=== PATIENT | male | born 1975 | race Caucasian/White ===

== ENCOUNTER 2024-12-11 10:40 | Emergency (ER) | payer BC, SELFPAY ==
[2024-12-11] VITALS (8 sets, daily range): BP systolic 129–155; BP diastolic 83–107; PULSE 61–81; RESP 16–18; TEMP 36.7–37; O2SAT 96–99; BMI 26.6
--- NOTE | 2024-12-11 11:21 | CT_ITS ---
FINAL REPORT TECHNIQUE: After the administration of intravenous contrast, axial images were obtained through the abdomen and pelvis by computed tomography. This study was performed with technique to keep radiation doses as low as reasonably achievable, (ALARA). Individualized dose reduction techniques using automated exposure control or adjustment of the MA and/or KV according to the patient's size were employed. CLINICAL HISTORY: right sided abd pain FINDINGS: Abdomen: The lung bases are clear. The liver is mildly fatty infiltrated. Gallbladder is present. The spleen is unremarkable. The adrenals are normal. The pancreas is unremarkable. There is prominence of the right renal pelvis with an obstructing 3 mm right UPJ stone seen on image 45 of series 3. The aorta is normal in caliber. There is no free fluid or adenopathy. Pelvis: The appendix is. The urinary bladder is unremarkable. There is no free fluid or adenopathy. IMPRESSION: Obstructing 3 mm right UPJ stone. Reviewed, Interpreted and Dictated by Lexa Norman MD Transcribed by Betty Bedolla Authenticated and [facility]
[2024-12-11 11:22] LABS: Microscopic, Urine URINE MICROSCOPIC (MICROSCOPIC)
--- NOTE | 2024-12-11 11:24 | ED_ITS ---
Discharge Plan Disposition Patient Disposition: Home, Self-Care Condition: Good Prescriptions Prescriptions: New ketorolac 10 mg tablet 10 mg PO Q6H PRN (Reason: pain) 5 Days Qty: 20 0RF tamsulosin [Flomax] 0.4 mg capsule 0.4 mg PO DAILY Qty: 14 0RF Rx Instructions: Take daily until passage of stone ondansetron 4 mg tablet,disintegrating 4 mg PO Q6H PRN (Reason: nausea and vomiting) Qty: 14 0RF Referrals Follow up/Referrals: Kyle Barry MD [Referring] - See instructions Provider,MD Rob [Primary Care Provider] - See instructions Activity Restrictions/Add. Instructions Additional Instructions/Restrictions: Please take all medications as prescribed, please follow-up with your family doctor and urologist in the upcoming days/weeks, return to the emergency department any worsening signs or symptoms. Please strain your urine until passage of kidney stone. Clinical Impressions Clinical Impression: Right nephrolithiasis Instructions Patient Instructions: DI for Kidney Stones Print Language Print Language: Grenadian Discharge ED Provider: Franco Song General Adult HPI <RAJ Cruz - Last Filed: 12/11/24 14:49> General Chief complaint: Abdominal Pain Stated complaint: Poss. appendicitis. Lower abd. pain Time Seen by Provider: 12/11/24 11:08 Mode of Arrival: Ambulatory Source of Information: Patient Description of Symptoms (Recalled from ER Triage Doc. by RN): pt c/o RLQ pain that started . pt states it originally felt like bloating. The pain comes in waves but increased last night when he began having N/V. pt denies CP, SOA, diarrhea or urinary symptoms. Last norm BM this AM. History of Present Illness HPI narrative: 49-year-old male presents to the emergency department with 4-day history of waxing and waning abdominal pain, with an episode of nausea and vomiting last night, patient describes it as bloating , pain is localized to the lower abdominal regions, most notable to the right lower quadrant, patient admits to subjective fever and chills last night, after the episode of vomiting, did have 1 episode of diarrhea last night as well, denies any chest pain shortness of breath, denies any constipation, denies any further episodes of diarrhea, did have p.o. intake this morning with a soda,, no hematochezia hematemesis or hemoptysis, nonbilious vomiting, no other family members or any other household members are sick, or have similar symptoms, denies any recent sick contacts, no urinary type symptomatology, patient has no other real relevant past medical history, takes no other medications at home, occasionally utilizes alcohol, denies any tobacco or other drug use initial triage vitals unremarkable. Onset (ago): day(s) Related Data Previous Rx's ?Medication ?Instructions ?Recorded ketorolac 10 mg tablet 10 mg PO Q6H PRN pain 5 days #20 12/11/24 tabs ondansetron 4 mg disintegrating 4 mg PO Q6H PRN nausea and 12/11/24 tablet vomiting #14 tabs tamsulosin 0.4 mg capsule (Flomax) 0.4 mg PO DAILY #14 caps 12/11/24 Allergies Allergy/AdvReac Type Severity Reaction Status Date / Time No Known Allergies Allergy Verified 12/11/24 11:18 [facility] <RAJ Cruz - Last Filed: 12/11/24 14:49> [facility] Disclaimer: The information contained in this section may have been updated after the patient was seen, as this information can be updated by other users. Social History (Updated 12/11/24 @ 14:49 by RAJ Cruz) Smoking Status: Never smoker alcohol intake: never current occupational status: other Travel in the last 8 weeks?: None Have you lived/traveled outside [place] in past 30 days?: No Contact w/someone who lives/traveled outside [place] past 30 days?: No Exposure to someone with infectious disease in past 14 days?: No Do you have a fever (greater than 100.4 F or 38 C)?: No Have you tested positive for COVID-19?: No Exposed to someone with COVID-19 in past 14 days?: No Do you have a sore throat?: No Do you have a cough?: No Do you have any weakness?: No Do you have any diarrhea?: No Are you experiencing any unusual bleeding?: No Do you have any muscle aches/pain?: No Do you have any abdominal pain?: Yes Are you experiencing loss of taste or smell?: No <RAJ Cruz - Last Filed: 12/11/24 14:49> ROS Obtained: Yes All systems reviewed & no additional complaints except as documented Physical Exam <RAJ Cruz - Last Filed: 12/11/24 14:49> General General appearance: alert and in no apparent distress Head Head exam: atraumatic and normocephalic Eye Eye exam: Present PERRL and EOMI ENT ENT exam: Present mucous membranes moist Neck Neck exam: Present normal inspection Chest Chest inspection: Present normal inspection and symmetric chest wall rise Respiratory Respiratory exam: Present normal lung sounds bilaterally; Absent respiratory distress Cardiovascular Cardiovascular exam: Present regular rate and normal rhythm Abdominal Exam Abdominal exam: Present soft, tenderness and tenderness at McBurney's Point; Absent guarding, rebound or rigidity Abdominal tenderness: Present RLQ, LLQ, diffuse and mild Comment: Mild lower quadrant abdominal tenderness to palpation, most notable on the right lower quadrant Extremities Exam Extremities exam: Present normal inspection Neurological Exam Neurological exam: Present alert and oriented X3 Psychiatric Psychiatric exam: Present normal affect Skin Skin exam: Present warm and dry Medical Decision Making <RAJ Cruz - Last Filed: 12/11/24 14:49> Medical Records Medical records reviewed: Yes I reviewed the patient's medical records. Screening: Per USPSTF and CDC recommendations, given the prevalence of disease in our region, it is our hospital?s policy to screen for HIV and viral Hepatitis for all patients aged 18 and over and those with ongoing risk factors. Gaurav Inquiry Pt receiving controlled substance: No Gaurav was queried for this patient: No Vital Signs: 12/11/24 11:12 12/11/24 12:00 12/11/24 12:49 Temperature 98.6 F Temperature Source Oral Pulse Rate 71 81 Pulse Rate [Left] 79 Respiratory Rate 16 Blood Pressure 155/102 H 143/107 H Blood Pressure [Right Arm] 153/95 H Blood Pressure Mean [Right Arm] 114 Blood Pressure Source Blood Pressure Source [Right Arm] Automatic Cuff Blood Pressure Position Blood Pressure Position [Right Arm] Sitting 02 Sat by Pulse Oximetry 99 97 97 Oxygen Delivery Method Room Air Room Air Room Air 12/11/24 13:01 12/11/24 13:30 12/11/24 14:00 Temperature Temperature Source Pulse Rate 61 61 63 Pulse Rate [Left] Respiratory Rate Blood Pressure 130/90 129/83 132/91 H Blood Pressure [Right Arm] Blood Pressure Mean [Right Arm] Blood Pressure Source Blood Pressure Source [Right Arm] Blood Pressure Position Blood Pressure Position [Right Arm] 02 Sat by Pulse Oximetry 96 96 98 Oxygen Delivery Method Room Air Room Air Room Air 12/11/24 14:30 12/11/24 14:47 Temperature 98.0 F Temperature Source Oral Pulse Rate 65 62 Pulse Rate [Left] Respiratory Rate 18 Blood Pressure 131/84 132/84 Blood Pressure [Right Arm] Blood Pressure Mean [Right Arm] Blood Pressure Source Automatic Cuff Blood Pressure Source [Right Arm] Blood Pressure Position Sitting Blood Pressure Position [Right Arm] 02 Sat by Pulse Oximetry 97 Oxygen Delivery Method Room Air Room Air Lab Data Lab Results 12/11/24 11:11: Urine Color Yellow, Urine Appearance Clear, Urine pH 6.0, Ur Specific [place] 1.020, Urine Protein Negative, Urine Glucose (UA) Negative, Urine Ketones Negative, Urine Blood Negative, Urine Nitrate Negative, Urine Bilirubin Negative, Urine Urobilinogen 0.2, Ur Leukocyte Esterase Negative, Urine RBC None, Urine WBC None, Ur Squamous Epith Cells Occasional, Urine Bacteria None 12/11/24 11:50: WBC 6.5, RBC 4.76, Hgb 15.6, Hct 42.8, MCV 89.9, MCH 32.8 H, M CHC 36.4 H, RDW 12.2, Plt Count 150, MPV 9.8, Neut % (Auto) 60.8, Lymph % (Auto) 23.3, [place] % (Auto) 9.3, Eos % (Auto) 5.7, Baso % (Auto) 0.6, Neut # (Auto) 3.9, Lymph # (Auto) 1.5, [place] # (Auto) 0.6, Eos # (Auto) 0.4, Baso # (Auto) 0.0, Sodium 138, Potassium 4.3, Chloride 110 H, Carbon Dioxide 25, Anion Gap 7.3, BUN 17, Creatinine 0.80, Estimated Creat Clear 128, Estimated GFR 104, Est GFR ( Amer) 125, Glucose 107 H, Lactate 1.0, Calcium 9.3, Total Bilirubin 0.6, AST 27, ALT 21, Alkaline Phosphatase 88, Total Protein 7.6, Albumin 4.6, Globulin 3.0, Albumin/Globulin Ratio 1.5, Lipase 59 12/11/24 11:50 12/11/24 11:50 Orders (Tests/Meds): ED MEDICATIONS Discontinued Medications Generic Name Dose Route Start Last Admin Trade Name Freq PRN Reason Stop Dose Admin Iopamidol 75 ml 12/11/24 12:35 12/11/24 12:36 Iopamidol-370 (76%);100ml Bottle IV 12/11/24 12:36 75 ml ONCE ONE Administration Ketorolac Tromethamine 15 mg 12/11/24 11:21 12/11/24 11:40 Ketorolac 30mg/Ml Vial IV 12/11/24 11:22 15 mg ONCE ONE Administration Ondansetron HCl 4 mg 12/11/24 11:21 12/11/24 11:40 Ondansetron 4mg/2ml Vial IV 12/11/24 11:22 4 mg ONCE ONE Administration Sodium Chloride 10 ml 12/11/24 12:35 12/11/24 12:36 Sodium Chloride 0.9% 10ml Syr (Rad Only) IV 01/10/25 12:34 10 ml NEEDED PRN Administration Maintain IV Site ORDERS Category Date Time Status CT abdomen pelvis w con Stat Cat Scan 12/11/24 11:21 Taken Complete Blood Count Auto Diff Stat Lab 12/11/24 11:50 Completed Comprehensive Metabolic Panel Stat Lab 12/11/24 11:50 Completed Lactic Acid Stat Lab 12/11/24 11:50 Completed Lipase Stat Lab 12/11/24 11:50 Completed UA [Urinalysis and Microscopic] Stat Lab 12/11/24 11:11 Completed Medical Decision Narrative: 49-year-old male presents to the emergency department with a several day history of abdominal pain bloating nausea vomiting and episode of diarrhea, differential diagnose include but not limited to gastroenteritis, ileus, volvulus, bowel obstruction, diverticulitis, pancreatitis, appendicitis, cholelithiasis, choledocholithiasis, cholecystitis, ileitis, colitis, ureterolithiasis, nephrolithiasis, among others. I discussed patient case with attending physician Dr. Song Obtain basic laboratory studies, lactic acid level, lipase level, urinalysis, will give 15 mg IV Toradol and 4 mg IV Zofran for pain and nausea obtain CT and pelvis with contrast for further evaluation characterization. Urinalysis unremarkable. CBC unremarkable No lactic acidosis I reviewed the patient's CT abd pelvis with contrast along the corresponding radiologic report, there is an obstructing 3 mm right UPJ stone. I discussed the results with the patient and family at the bedside patient famine agreement current treatment plan/discharge plan, will call patient and 10 mg Toradol p.o, 0.4 mg tamsulosin, 4 mg p.o. Zofran as needed for nausea vomiting, patient given strict ED return precautions, he is not from the area, will follow-up with urologist back home. Patient then voiced understanding agree with current treatment plan/discharge plan. <Franco Song MD - Last Filed: 12/11/24 23:20> Vital Signs: 12/11/24 11:12 12/11/24 12:00 12/11/24 12:49 Temperature 98.6 F Temperature Source Oral Pulse Rate 71 81 Pulse Rate [Left] 79 Respiratory Rate 16 Blood Pressure 155/102 H 143/107 H Blood Pressure [Right Arm] 153/95 H Blood Pressure Mean [Right Arm] 114 Blood Pressure Source Blood Pressure Source [Right Arm] Automatic Cuff Blood Pressure Position Blood Pressure Position [Right Arm] Sitting 02 Sat by Pulse Oximetry 99 97 97 Oxygen Delivery Method Room Air Room Air Room Air 12/11/24 13:01 12/11/24 13:30 12/11/24 14:00 Temperature Temperature Source Pulse Rate 61 61 63 Pulse Rate [Left] Respiratory Rate Blood Pressure 130/90 129/83 132/91 H Blood Pressure [Right Arm] Blood Pressure Mean [Right Arm] Blood Pressure Source Blood Pressure Source [Right Arm] Blood Pressure Position Blood Pressure Position [Right Arm] 02 Sat by Pulse Oximetry 96 96 98 Oxygen Delivery Method Room Air Room Air Room Air 12/11/24 14:30 12/11/24 14:47 Temperature 98.0 F Temperature Source Oral Pulse Rate 65 62 Pulse Rate [Left] Respiratory Rate 18 Blood Pressure 131/84 132/84 Blood Pressure [Right Arm] Blood Pressure Mean [Right Arm] Blood Pressure Source Automatic Cuff Blood Pressure Source [Right Arm] Blood Pressure Position Sitting Blood Pressure Position [Right Arm] 02 Sat by Pulse Oximetry 97 Oxygen Delivery Method Room Air Room Air Lab Data Lab Results 12/11/24 11:11: Urine Color Yellow, Urine Appearance Clear, Urine pH 6.0, Ur Specific [place] 1.020, Urine Protein Negative, Urine Glucose (UA) Negative, Urine Ketones Negative, Urine Blood Negative, Urine Nitrate Negative, Urine Bilirubin Negative, Urine Urobilinogen 0.2, Ur Leukocyte Esterase Negative, Urine RBC None, Urine WBC None, Ur Squamous Epith Cells Occasional, Urine Bacteria None 12/11/24 11:50: WBC 6.5, RBC 4.76, Hgb 15.6, Hct 42.8, MCV 89.9, MCH 32.8 H, M CHC 36.4 H, RDW 12.2, Plt Count 150, MPV 9.8, Neut % (Auto) 60.8, Lymph % (Auto) 23.3, [place] % (Auto) 9.3, Eos % (Auto) 5.7, Baso % (Auto) 0.6, Neut # (Auto) 3.9, Lymph # (Auto) 1.5, [place] # (Auto) 0.6, Eos # (Auto) 0.4, Baso # (Auto) 0.0, Sodium 138, Potassium 4.3, Chloride 110 H, Carbon Dioxide 25, Anion Gap 7.3, BUN 17, Creatinine 0.80, Estimated Creat Clear 128, Estimated GFR 104, Est GFR ( Amer) 125, Glucose 107 H, Lactate 1.0, Calcium 9.3, Total Bilirubin 0.6, AST 27, ALT 21, Alkaline Phosphatase 88, Total Protein 7.6, Albumin 4.6, Globulin 3.0, Albumin/Globulin Ratio 1.5, Lipase 59 Orders (Tests/Meds): ED MEDICATIONS Discontinued Medications Generic Name Dose Route Start Last Admin Trade Name Freq PRN Reason Stop Dose Admin Iopamidol 75 ml 12/11/24 12:35 12/11/24 12:36 Iopamidol-370 (76%);100ml Bottle IV 12/11/24 12:36 75 ml ONCE ONE Administration Ketorolac Tromethamine 15 mg 12/11/24 11:21 12/11/24 11:40 Ketorolac 30mg/Ml Vial IV 12/11/24 11:22 15 mg ONCE ONE Administration Ondansetron HCl 4 mg 12/11/24 11:21 12/11/24 11:40 Ondansetron 4mg/2ml Vial IV 12/11/24 11:22 4 mg ONCE ONE Administration Sodium Chloride 10 ml 12/11/24 12:35 12/11/24 12:36 Sodium Chloride 0.9% 10ml Syr (Rad Only) IV 01/10/25 12:34 10 ml NEEDED PRN Administration Maintain IV Site ORDERS Category Date Time Status CT abdomen pelvis w con Stat Cat Scan 12/11/24 11:21 Taken Complete Blood Count Auto Diff Stat Lab 12/11/24 11:50 Completed Comprehensive Metabolic Panel Stat Lab 12/11/24 11:50 Completed Lactic Acid Stat Lab 12/11/24 11:50 Completed Lipase Stat Lab 12/11/24 11:50 Completed UA [Urinalysis and Microscopic] Stat Lab 12/11/24 11:11 Completed Medical Decision Narrative: 49-year-old male presents to the emergency department with a several day history of abdominal pain bloating nausea vomiting and episode of diarrhea, differential diagnose include but not limited to gastroenteritis, ileus, volvulus, bowel obstruction, diverticulitis, pancreatitis, appendicitis, cholelithiasis, choledocholithiasis, cholecystitis, ileitis, colitis, ureterolithiasis, nephrolithiasis, among others. I discussed patient case with attending physician Dr. Song Obtain basic laboratory studies, lactic acid level, lipase level, urinalysis, will give 15 mg IV Toradol and 4 mg IV Zofran for pain and nausea obtain CT and pelvis with contrast for further evaluation characterization. Urinalysis unremarkable. CBC unremarkable No lactic acidosis I reviewed the patient's CT abd pelvis with contrast along the corresponding radiologic report, there is an obstructing 3 mm right UPJ stone. I discussed the results with the patient and family at the bedside patient famine agreement current treatment plan/discharge plan, will call patient and 10 mg Toradol p.o, 0.4 mg tamsulosin, 4 mg p.o. Zofran as needed for nausea vomiting, patient given strict ED return precautions, he is not from the area, will follow-up with urologist back home. Patient then voiced understanding agree with current treatment plan/discharge plan. I was consulted by the JOSE, and we discussed the complexity of the problems being addressed. I approve the treatment and management plan for this patient's care in the emergency department, thus performing a substantive portion of the medical decision making. Franco Song MD Critical Care <RAJ Cruz - Last Filed: 12/11/24 14:49> Critical Care Time Critical Care Time: No
[2024-12-11 11:30] LABS: Appearance,Urine CLEAR (Clear); Bilirubin,Urine Negative (Negative); Blood, Urine Negative (Negative); Color,Urine YELLOW (Yellow); Glucose,Urine (UA) Negative (Negative); Ketones,Urine Negative (Negative); Leukocyte Esterase,Urine Negative (Negative); Nitrate,Urine Negative (Negative); Protein,Urine Negative (Negative); Urobilinogen,Urine 0.2 EU/dl (0.2)
[2024-12-11] MEDS: ONDANSETRON 4MG/2ML VIAL 4 MG IV (11:40)
[2024-12-11] MEDS: KETOROLAC 30MG/ML VIAL 15 MG IV (11:40)
--- NOTE | 2024-12-11 11:55 | PC.NURSE ---
PT UPDATED ON POC, WARM BLANKET PROVIDED. CALL LIGHT WITHIN REACH. FAMILY AT BEDSIDE
[2024-12-11 11:58] LABS: Basophils % 0.6 % (0.1-2.0); Eosinophils # 0.4 Kmm3 (0.0-0.4); Eosinophils % 5.7 % (0.1-12.0); Hematocrit 42.8 % (42.0-52.0); Hemoglobin 15.6 g/dL (14.1-18.0); Immature Granulocytes # 0.02 10^3uL; Immature Granulocytes % 0.3 %; Lymphocytes # 1.5 K/mm3 (0.7-4.5); Lymphocytes % 23.3 % (10-50); Mean Corpuscular HGB Conc 36.4 g/dL (31.8-35.4); Mean Corpuscular Hemoglobin 32.8 pg (27.0-31.2); Mean Corpuscular Volume 89.9 fl (80-94); Mean Platelet Volume 9.8 fl (7.4-10.4); Monocytes # 0.6 K/mm3 (0.1-1.0); Monocytes % 9.3 % (1.7-9.3); Neutrophils # 3.9 K/mm3 (1.8-7.8); Neutrophils % 60.8 % (37.0-80.0); Nucleated Red Blood Cells # 0 10^3/uL; Nucleated Red Blood Cells % 0 %; Platelet Count 150 K/mm3 (142-424); Red Blood Count 4.76 M/mm3 (4.60-6.20); Red Cell Distribution Width 12.2 % (11.5-17.5); Red Cell Distribution Width-SD 39.8 fL; White Blood Count 6.5 K/mm3 (4.8-10.8)
[2024-12-11 12:14] LABS: Alanine Aminotransferase 21 U/L (12-78); Albumin Level 4.6 g/dl (3.5-5.0); Albumin/Globulin Ratio 1.5 (1.1-1.8); Alkaline Phosphatase 88 U/L (38-126); Anion Gap 7.3 mEq/L (5-15); Aspartate Amino Transferase 27 U/L (17-59); Bilirubin,Total 0.6 mg/dl (0.2-1.3); Blood Urea Nitrogen 17 mg/dl (9-20); Calcium 9.3 mg/dl (8.4-10.2); Carbon Dioxide 25 mmol/L (22.0-30.0); Chloride 110 mmol/L (98-107); Creatinine Clearance Estimated 128 mL/min (50-200); Estimated Glomerular Filt Rate 104 ml/min (>60); GFR (African American) 125 ML/MIN (>60); Glucose 107 mg/dl (74-100); Lipase 59 U/L (23-300); Potassium 4.3 mmoL/L (3.5-5.1); Sodium 138 mmol/L (136-145); Total Protein,Serum 7.6 g/dl (6.3-8.2)
[2024-12-11 12:27] LABS: Squamous Epithelial Cell,Urine Occasional #/hpf (0-5)
--- NOTE | 2024-12-11 12:29 | PC.NURSE ---
PT TO CT
[2024-12-11] MEDS: IOPAMIDOL-370 (76%);100ML BOTTLE 75 ML IV (12:36)
[2024-12-11] MEDS: SODIUM CHLORIDE 0.9% 10ML SYR (RAD ONLY) 10 ML IV (12:36)
--- NOTE | 2024-12-11 14:02 | PC.NURSE ---
ROUNDED ON PT, UPDATED ON POC, WAITING ON CT READS. NO NEEDS AT THIS TIME. CALL LIGHT WITHIN REACH, FAMILY AT BEDSIDE
== END 2024-12-11 14:51 | disposition home or self-care (01) ==
PROVIDERS: Physician Assistant; Emergency Provider Student in an Organized Health Care Education/Training Program
DX: R10.31 Right lower quadrant pain (principal); N20.1 Calculus of ureter; R11.2 Nausea with vomiting, unspecified
CPT/HCPCS: 74177; 80053; 81001; 83605; 83690; 85025; 96374; 96375; 99284; J1885; J2405; Q9967